=== PATIENT | female | born 1970 | race Caucasian/White ===

== ENCOUNTER → 2018-09-07 | Outpatient (CLI) | payer BC ==
--- NOTE | 2018-09-08 10:02 | RAD ---
DATE: 09/07/2018 EXAM: DIGITAL SCREEN BILAT W/CAD HISTORY: Screening Mammogram COMPARISON: None, this is considered a baseline. This study was interpreted with the benefit of Computerized Aided Detection (CAD). The breast parenchyma shows scattered fibroglandular densities. Breast parenchyma level B. FINDINGS: Bilateral digital 2-D and 3-D tomosynthesis CC and MLO views. There is a mass in the retroareolar left breast. No suspicious mass, calcification or architectural distortion in the right breast. IMPRESSION: Retroareolar left breast mass. Spot compression CC and MLO views with same-day ultrasound recommended. BI-RADS CATEGORY: 0 INCOMPLETE: NEEDS ADDITIONAL IMAGING EVALUATION AND/OR PRIOR MAMMOGRAMS FOR COMPARISON. RECOMMENDED FOLLOW-UP: ADD ADDITIONAL IMAGING PQRS compliance statement: Patient information was entered into a reminder system with a target due date for the next mammogram. Mammography is a sensitive method for finding small breast cancers, but it does not detect them all and is not a substitute for careful clinical examination. A negative mammogram does not negate a clinically suspicious finding and should not result in delay in biopsying a clinically suspicious abnormality. "Our facility is accredited by the [employer] Mammography Program."
== END | disposition home or self-care (01) ==
LOC: MAMMO 12:00
PROVIDERS: ATTEND Family Medicine
DX: Z12.31 Encounter for screening mammogram for malignant neoplasm of breast (principal); N63.41 Unspecified lump in right breast, subareolar
CPT/HCPCS: 77067

== ENCOUNTER → 2018-09-21 | Outpatient (CLI) | payer BC ==
--- NOTE | 2018-09-21 12:19 | RAD ---
DATE: 09/21/2018 EXAM: MAMMO DENA OPAL LT, BREAST LEFT HISTORY: Breast nodule COMPARISON: 09/07/2018 This study was interpreted with the benefit of Computerized Aided Detection (CAD). Breast Density: SCATTERED The breast parenchyma shows scattered fibroglandular densities. Breast parenchyma level B. FINDINGS: Additional views of the left breast were obtained including CC tomosynthesis images and a straight mediolateral view. They confirm the presence of a small 8 mm slightly lobulated nodule located just lateral to the midline in the inferior retroareolar region at approximately the 4:00 location. This is best visualized on CC tomosynthesis image #10. No suspicious microcalcifications are evident. CC tomosynthesis imaging also demonstrates a focus of mild skin thickening far laterally on the left. This appears to correspond to a known inflammatory skin lesion. Left breast ultrasound, 09/21/2018: A targeted ultrasound exam of the left lateral retroareolar region. There is a 5 x 2 x 7 mm nodule identified at the 4:00 location which corresponds in size and location to the mammographic abnormality. This nodule is hypoechoic without significant posterior acoustic enhancement or shadowing. It is wider than tall. There is movable debris within a portion of this process indicating that it is a complicated cystic structure. No other abnormality is seen in this region. IMPRESSION: 1. Small nodule at the 4:00 retroareolar region which demonstrates sonographic characteristics suggesting a complicated cyst or small abscess. A necrotic neoplasm cannot be entirely excluded. Sonographic follow-up in 3-4 months is suggested. 2. Small focus of skin thickening far posterolaterally which appears to correspond to an inflammatory skin lesion. Clinical surveillance is suggested. BI-RADS CATEGORY: 3 PROBABLY BENIGN FINDING(S)-SHORT INTERVAL FOLLOW-UP SUGGESTED RECOMMENDED FOLLOW-UP: 3M 3 MONTH FOLLOW-UP PQRS compliance statement: Patient information was entered into a reminder system with a target due date for the next mammogram. Mammography is a sensitive method for finding small breast cancers, but it does not detect them all and is not a substitute for careful clinical examination. A negative mammogram does not negate a clinically suspicious finding and should not result in delay in biopsying a clinically suspicious abnormality. "Our facility is accredited by the [employer] Mammography Program."
== END | disposition home or self-care (01) ==
LOC: MAMMO 10:52
DX: N63.42 Unspecified lump in left breast, subareolar (principal)
CPT/HCPCS: 76641; 77065; G0279; 77061

== ENCOUNTER 2019-02-25 06:48 | Emergency (ER) | payer BC ==
[~2019-02-25] VITALS: Ht 167.6 cm; Wt 108.9 kg
[2019-02-25 07:00] VITALS: BP 146/84
[2019-02-25] MEDS ORDERED: KETOROLAC 60 MG/2 ML VIAL. IM ONE (07:15)
--- NOTE | 2019-02-25 07:45 | RAD ---
Indication: Hip pain since 2:00 PM yesterday after getting out of chair. TECHNIQUE: AP pelvis and 2 views of the left hip joint COMPARISON: None FINDINGS/ impression: Bilateral hip joints are symmetric. No acute fracture or dislocation. Electronically signed by: Jim Perez DO (02/25/2019 7:42 AM) [facility]
[2019-02-25] MEDS ORDERED: NAPR-514 PO (07:54)
--- NOTE | 2019-02-25 07:55 | PHYS DOC ---
Past Medical History Past Medical History: Other Additional Past Medical Histor: PVC's Past Surgical History: Other Additional Past Surgical Histo: Right finger surgery Alcohol Use: None Drug Use: None Adult General Chief Complaint Chief Complaint: HIP PAIN HPI HPI 49-year-old female presents with left hip pain. She states she got up out of the chair yesterday approximately 2 PM and felt something give way in her left hip. She states the pain has intensified over the last 12-18 hours. She states she's having difficulty putting pressure on it now. She has not had this kind of pain in the past. She states if she sitting still the pain is not as intense and makes it much worse if she tries to get up and move around. She has not noticed any bruising to the area. She states the lateral part of her hip is very sore to touch. She denies any other injuries.] Review of Systems Review of Systems Constitutional: Denies fever or chills [] Eyes: Denies change in visual acuity, redness, or eye pain [] HENT: Denies nasal congestion or sore throat [] Respiratory: Denies cough or shortness of breath [] Cardiovascular: No additional information not addressed in HPI [] GI: Denies abdominal pain, nausea, vomiting, bloody stools or diarrhea [] : Denies dysuria or hematuria [] Musculoskeletal: Per history of present illness[] Integument: Denies rash or skin lesions [] Neurologic: Denies headache, focal weakness or sensory changes [] Endocrine: Denies polyuria or polydipsia [] All other systems were reviewed and found to be within normal limits, except as documented in this note. Current Medications Current Medications Current Medications Medications (Trade) Dose Ordered Sig/[facility] Start Time Stop Time Status Last Admin Dose Admin Ketorolac Tromethamine (Toradol Im) 60 mg 1X ONCE 02/25/19 07:15 02/25/19 07:16 DC 02/25/19 07:42 60 MG Allergies Allergies Allergies Coded Allergies Type Severity Reaction Last Updated Verified No Known Drug Allergies 02/25/19 No Physical Exam Physical Exam Constitutional: Well developed, well nourished, no acute distress, non-toxic appearance. [] HENT: Normocephalic, atraumatic, bilateral external ears normal, oropharynx moist, no oral exudates, nose normal. [] Eyes: PERRLA, EOMI, conjunctiva normal, no discharge. [] Neck: Normal range of motion, no tenderness, supple, no stridor. [] Cardiovascular:Heart rate regular rhythm, no murmur [] Lungs & Thorax: Bilateral breath sounds clear to auscultation [] Abdomen: Bowel sounds normal, soft, no tenderness, no masses, no pulsatile masses. [] Skin: Warm, dry, no erythema, no rash. [] Back: No tenderness, no CVA tenderness. [] Extremities: Left hip shows a decreased range of motion secondary to pain there is tender to palp over the greater trochanteric area. I do not appreciate any bruising in the area. There is no obvious deformity.. [] Neurologic: Alert and oriented X 3, normal motor function, normal sensory function, no focal deficits noted. [] Psychologic: Anxious. [] Current Patient Data Vital Signs Vital Signs Date Time Temp Pulse Resp B/P (MAP) Pulse Ox O2 Delivery O2 Flow Rate FiO2 02/25/19 07:00 97.7 84 18 146/84 (104) 97 Room Air 97.7 EKG EKG [] Radiology/Procedures Radiology/Procedures [] Impressions: REASON: hip pain SINCE 2PM YESTERDAY AFTER GETTING OUT OF CHAIR. HIP WENT OUT. PROCEDURE: HIP LEFT 2V WITH PELVIS Indication: Hip pain since 2:00 PM yesterday after getting out of chair. TECHNIQUE: AP pelvis and 2 views of the left hip joint COMPARISON: None FINDINGS/ impression: Bilateral hip joints are symmetric. No acute fracture or dislocation. Course & Med Decision Making Course & Med Decision Making Pertinent Labs and Imaging studies reviewed. (See chart for details) [ED course: Evaluation reveals a 49-year-old female with left hip pain. Hip and pelvis x-ray was unremarkable. I did give her 60 mg of Toradol while she was in the emergency department. I'll provide her with an anti-inflammatory prescription to take at home.] Dragon Disclaimer Dragon Disclaimer This electronic medical record was generated, in whole or in part, using a voice recognition dictation system. Departure Departure Impression: Primary Impression: Hip pain, left Disposition: HOME, SELF-CARE Condition: STABLE Referrals: SONIA LYMAN MD (PCP) Patient Instructions: Hip Pain Additional Instructions: Take medication as directed. Return to the emergency department with any new or concerning symptoms Scripts Naproxen (NAPROXEN) 500 Mg Tablet 1 TAB PO BID PRN for PAIN, #30 TAB 1 Refill Prov: YASMEEN HWANG DO 02/25/19 YASMEEN HWANG DO Feb 25, 2019 07:55
== END 2019-02-25 08:03 | disposition home or self-care (01) ==
LOC: ER 06:48
DX: M25.552 Pain in left hip (principal)
CPT/HCPCS: 73502; 96372; 99284; J1885

== ENCOUNTER 2021-01-08 12:35 | Emergency (ER) | payer BC ==
[~2021-01-08] VITALS: Ht 167.6 cm; Wt 113.0 kg
[~2021-01-08 12:35] MED LIST: NAPR-514 PO
[2021-01-08 13:40] VITALS: BP 151/109
[2021-01-08] MEDS ORDERED: TETRACAINE 0.5% OPHTH SOLUTION 4ML BOTTLE. OD ONE (14:15)
[2021-01-08] MEDS ORDERED: FLUORESCEIN OPHTH TEST STRIP. OD ONE (14:15)
[2021-01-08] MEDS ORDERED: LEVO5DRO3 OD (15:43)
--- NOTE | 2021-01-08 15:44 | PHYS DOC ---
Past Medical History Past Medical History: Hypertension, Other Additional Past Medical Histor: PVC's Past Surgical History: Other Additional Past Surgical Histo: Right finger surgery Smoking Status: Former Smoker Alcohol Use: Rarely Drug Use: None General Adult EDM: Chief Complaint: EYE PROBLEMS HPI: HPI: 50-year-old female PMH HTN, afib and PVCs (on metoprolol) presents to the ed with complaints of right red eye stating " it feels like I was developing a stye last night around 11 PM," I noticed redness at that time. Now reports "pain and pressure" to the right eye but no blurred vision or vision loss. Denies any blunt head or neck trauma. Follows with Dr. Harkins in the eye clinic and states she will make an appointment with him tomorrow for follow-up. Has contacts but does not wear them. Reports she does have poor vision but does not know accurate numbers. History of glaucoma. Uses daily Systane preservative-free eyedrops for dry eyes and a patch at night. Associated yellow crusts in right lower eyelashes. 2nd covid vaccine mid November 2020. Review of Systems: Review of Systems: Constitutional: Denies fever or chills. [] Eyes: Denies change in visual acuity or proptosis HENT: Denies nasal congestion or sore throat. [] Respiratory: Denies cough or shortness of breath. [] Cardiovascular: Denies chest pain or syncope Integument: Denies rash or diaphoresis Neurologic: Denies headache, neck pain, focal weakness or sensory changes. [] Lymphatic: Denies swollen glands. [] Psychiatric: Denies depression or anxiety. [] Heart Score: C/O Chest Pain: No Risk Factors: Risk Factors: DM, Current or recent (<one month) smoker, HTN, HLP, family history of CAD, obesity. Risk Scores: Score 0 - 3: 2.5% MACE over next 6 weeks - Discharge Home Score 4 - 6: 20.3% MACE over next 6 weeks - Admit for Clinical Observation Score 7 - 10: 72.7% MACE over next 6 weeks - Early Invasive Strategies Current Medications: Current Medications Medications (Trade) Dose Ordered Sig/[facility] Start Time Stop Time Status Last Admin Dose Admin Fluorescein Sodium (Ful-Connie) 1 strip 1X ONCE 01/08/21 14:15 01/08/21 14:16 DC 01/08/21 14:20 1 STRIP Tetracaine HCl (Tetracaine) 1 drop 1X ONCE 01/08/21 14:15 01/08/21 14:16 DC 01/08/21 14:21 1 DROP Allergies: Allergies: Allergies Coded Allergies Type Severity Reaction Last Updated Verified No Known Drug Allergies 02/25/19 No Physical Exam: PE: Constitutional: Well developed, well nourished, no acute distress, non-toxic appearance, afebrile HENT: Normocephalic, atraumatic, Eyes: PERRLA-4mm blOMI, conjunctiva injection over lateral aspect of eye, no medial canthus conjunctival injection, no ciliary flush, no hazy pupil, slight film over right lateral conjuncticva, no FB, no hyphema or hypopyn, tonopen 17 right eye, no fluorescein uptake with Archer lamp right eye, no Maynor sign right eye, globe intact right eye Neck: Normal range of motion, supple, no nuchal rigidity or meningismus Cardiovascular: S1/2 present, regular rhythm Lungs & Thorax: Speaking in full sentences, bilateral equal chest rise, no tachypnea or increased work of breathing Skin: Warm, dry, no erythema, no rash. [] Extremities: No tenderness, no cyanosis, Neurologic: Alert and oriented X 3, no focal deficits noted. [] Psychologic: Affect normal, judgement normal, mood normal. [] Current Patient Data: Vital Signs: Vital Signs Date Time Temp Pulse Resp B/P (MAP) Pulse Ox O2 Delivery O2 Flow Rate FiO2 01/08/21 13:40 98.2 73 18 151/109 (123) 95 Room Air 98.2 EKG: EKG: [] Radiology/Procedures: Radiology/Procedures: [] Course & Med Decision Making: Course & Med Decision Making Pertinent Labs and Imaging studies reviewed. (See chart for details) Concern for conjunctivitis, I suspect allergic versus bacterial, will cover with antibiotic drops. Patient is already using artificial tears daily. Patient informed not to use her contact lenses at this time. Patient agrees to follow- up with her fitness center attendant in the next 24 hours. Will discharge home with strict ED return precautions were given for blurred vision, fever, pain behind his eye, rash or neck stiffness. Encouraged urgent outpatient follow-up with PMD and fitness center attendant in 24 to 48 hours. Life-threatening processes were considered but are low suspicion at this time, given history, physical exam and ED workup. Pt was educated on all prescription medications and adverse effects. All patient's questions were answered and pt was stable at time of discharge. Life/limb-threatening differential includes but is not limited to, acute angle- closure glaucoma, uveitis, corneal abrasion, CRVO/CRAO, PRES, retinal deta chment, vitreous hemorrhage, temporal arteritis, optic neuritis, high-altitude retinopathy foreign body, globe rupture, episcleritis, corneal ulcer, traumatic iritis, hyphema or empyema, orbital cellulitis, orbital hematoma, lens dislocation, orbital wall fracture or toxidrome (digoxin, methanol, anticholinergic, hallucinogenic, etc). I spoken with the patient and her caregivers. I explained the patient's condition, diagnoses and treatment plan based on the information available to me at this time. I have answered the patient and her caregiver's questions and addressed any concerns. The patient and her caregivers have a good u nderstanding of patient's diagnosis, condition and treatment plan as can be expected at this point. Vital signs have been stable. Patient's condition is stable and appropriate for discharge from the emergency department. Patient will pursue further outpatient evaluation with primary care physician or other designated or consulting physician as outlined in the discharge instruct ions. The patient and/or caregivers are agreeable to this plan of care and follow-up instructions have been explained in detail. The patient and/or caregivers have received these instructions in written form and have expressed an understanding of the discharge instructions. The patient and/or caregivers are aware that any significant change of condition or worsening of symptoms should prompt immediate return to this or the closest emergency department or call to 911. Etta Disclaimer: Etta Disclaimer: This electronic medical record was generated, in whole or in part, using a voice recognition dictation system. Departure Departure Impression: Primary Impression: Bacterial conjunctivitis of right eye Additional Impression: Conjunctival injection Disposition: HOME / SELF CARE / HOMELESS Condition: STABLE Referrals: SONIA LYMAN MD (PCP) follow up for routine/preventative care Patient Instructions: Allergic Conjunctivitis, Conjunctivitis (Viral and Bacterial) Additional Instructions: Follow-up with your fitness center attendant in 24 to 48 hours or FOLLOW UP WITH ORTHOPEDICS: Orthopaedic Sports Medicine Orthopaedic Surgery [facility] [address] [place], [address] [place] [address] OR [facility] [address] [place] [address] EMERGENCY DEPARTMENT GENERAL DISCHARGE INSTRUCTIONS Thank you for coming to [facility] Emergency Department (ED) today and trusting us with you care. We trust that you had a positive experience in our Emergency Department. If you wish to speak to the department management, you may call the Director at [phone]. YOUR FOLLOW UP INSTRUCTIONS ARE FOLLOWS: 1. Do you have a private Doctor? If you do not have a private doctor, please ask for a resource list of physicians or clinics that may be able to assist you with follow up care. 2. The Emergency Physicain has interpreted your x-rays. The X-Ray specialist will also review them. If there is a change in the findings, you will be notified in 48 hours when at all possible. 3. A lab test or culture has been done, your results will be reviewed and you will be notified if you need a change in treatment. ADDITIONAL INSTRUCTIONS AND INFORMATION: 1. Your care today has been supervised by a physician who is specially trained in emergency care. Many problems require more than one evaluation for a complete diagnosis and treatment. We recommend that you schedule your follow up appointment as recommended to ensure complete treatment of you illness or injury. If you are unable to obtain follow up care and continue to have a problem, or if your condition worsens, we recommend that you return to the ED. 2. We are not able to safely determine your condition over the phone nor are we able to give sound medical advice over the phone. For these safety reasons, if you call for medical advice we will ask you to come to the ED for further evaluation. 3. If you have any questions regarding these discharge instructions please call the ED at [phone]. SAFETY INFORMATION: In the interest of safety, wellness, and injury prevention; we encourage you to wear your sealbelt, if you smoke; quite smoking, and we encourage family to use a protective helmet for bicycling and other sporting events that present an increased risk for head injury. IF YOUR SYMPTOMS WORSEN OR NEW SYMPTOMS DEVELOP, OR YOU HAVE CONCERNS ABOUT YOUR CONDITION; OR IF YOUR CONDITION WORSENS WHILE YOU ARE WAITING FOR YOUR FOLLOW UP APPOINTMENT; EITHER CONTACT YOUR PRIMARY CARE DOCTOR, THE PHYSICIAN WHOSE NAME AND NUMBER YOU WERE GIVEN, OR RETURN TO THE ED IMMEDIATELY. Scripts Levofloxacin (LEVOFLOXACIN 0.5% OPTH) 5 Ml Drops 1-2 DROP OD as directed, #5 ML 0 Refills 1-2 drops every 2 hours x 2 days THEN every 6 hours for 5 days Prov: JULIEN MCKEON DO 01/08/21 JULIEN MCKEON DO January 08, 2021 15:44
== END 2021-01-08 16:00 | disposition home or self-care (01) ==
LOC: ER 12:35
DX: H10.89 Other conjunctivitis (principal); I10 Essential (primary) hypertension; I48.91 Unspecified atrial fibrillation
CPT/HCPCS: 99283

== ENCOUNTER 2021-04-17 09:56 | Observation (INO) | payer BC, OTHER ==
[~2021-04-17] VITALS: Ht 167.6 cm; Wt 120.4 kg
[2021-04-17] VITALS (13 sets, daily range): BP systolic 133–162; BP diastolic 77–114
[~2021-04-17 09:56] MED LIST changes: +LEVO5DRO3 OD
[2021-04-17] MEDS ORDERED: ASPIRIN CHEWABLE 81 MG TABLET. PO ONE (10:30)
[2021-04-17] MEDS ORDERED: METOPROLOL TART IMMED RELEASE 50 MG TABLET. PO ONE (10:30)
[2021-04-17] MEDS ORDERED: METOPROLOL IV PUSH 5 MG/5 ML VIAL. IVP ONE (10:45)
--- NOTE | 2021-04-17 10:50 | PDOC2 ---
SANAM QUACH BEEF KILLER 04/17/21 1050: CARDIAC CONSULT DATE OF CONSULT Date of Consult DATE: 04/17/21 TIME: 10:48 SOURCE Source: Chart review, Patient HISTORY OF PRESENT ILLNESS HISTORY OF PRESENT ILLNESS This is a 51 yo female who presented secondary to palpitations, tachycardia. Her watch notified heart rhythm of AFIB, which prompted her arrival to the ED. Patient has a history of palpitations and AFIB. Event monitor 06/30 with brief periods of AFIB with burden of less than 1%, although monitor only worse 11 days. She denies any chest pain, dizziness, diaphoresis, or nausea/vomiting. Reports having recent cold/congestion/sore throat. Her work required her to get COVID test prior to returning back to work. Was headed to get COVID test this morning. She did not have her routine metoprolol today as she was told to hold home medications. Tele shows SR with intermittent AFIB with RVR. PAST MEDICAL HISTORY Cardiovascular: AFIB, Hyperlipidemia GI: GERD Psych: Anxiety PAST SURGICAL HISTORY Past Surgical History: Tubal Ligation FAMILY HISTORY Family History: Hypertension SOCIAL HISTORY Smoke: Quit ALCOHOL: none Drugs: None Lives: with Family ALLERGIES ALLERGIES: Coded Allergies: No Known Drug Allergies (Unverified , 02/25/19) ROS Review of System 14 point ROS conducted with pertinent positives noted above in hPI PHYSICAL EXAM General: Alert, Oriented X3, Cooperative, No acute distress HEENT: Atraumatic Lungs: Clear to auscultation Heart: Regular rate (SR, also having intermittent AFIB with RVR ) Abdomen: Soft Extremities: No edema, Normal pulses Skin: No breakdown, No significant lesion Neuro: Normal speech, Sensation intact Psych/Mental Status: Mental status NL, Mood NL MUSCULOSKELETAL: No deformity STRESS TEST STRESS TEST Conclusion 1. No evidence of EKG changes with stress testing. 2. Normal perfusion at stress/rest. 3. Low risk study. 4. EF > 60%. DATE: 09/18/18 1117 ASSESSMENT/PLAN ASSESSMENT/PLAN 1. PAFIB with RVR; s/p IV metoprolol. Continues to have intermittent AFIB with RVR. Event monitor with brief bursts of AFIB, otherwise SR. AFIB burden < 1%, although monitor only worn for 11 days. 2. Hyperlipidemia 3. GERD Recommendations Digoxin x1 now Resume oral metoprolol for rate control TSH Echo to assess LV systolic function [id number] 1 correlating with a 0.6% risk of stoke per year ASA therapy for stroke prophylaxis. Consider addition of OAC and antiarrhythmic therapy. Will d/w primary c ardiologist. MARK GUERRERO MD 04/17/216: CARDIAC CONSULT ASSESSMENT/PLAN ASSESSMENT/PLAN Patient seen and examined I agree with our nurse practitioners assessment and plan. 1. PAFIB with RVR; s/p IV metoprolol and digoxin. Continues to have intermittent AFIB with RVR. Event monitor with brief bursts of AFIB, othe rwise SR. AFIB burden < 1%, although monitor only worn for 11 days. We will continue present medications. Continuing on monitor. Based on clinical course will consider anticoagulation and possible antiarrhythmic treatment. Echocardiogram pending. TSH. 2. Hyperlipidemia 3. SANAM SIDDIQUI APRN Apr 17, 2021 10:50 MARK GUERRERO MD Apr 17, 2021 18:46
[2021-04-17] MEDS ORDERED: DIGOXIN IV 500 MCG/2 ML AMPUL. IV ONE (11:00)
[2021-04-17 11:08] LABS: BASO % 1 % (0-3); EOS # 0.1 x10^3/uL (0.0-0.7); EOS % 1 % (0-3); HEMATOCRIT 45.9 % (36.0-47.0); HEMOGLOBIN 15.9 g/dL (12.0-15.5); LYMPH % 26 % (24-48); MEAN CORPUSCULAR HEMOGLOBIN 32 pg (25-35); MEAN CORPUSCULAR HGB CONC 35 g/dL (31-37); MEAN CORPUSCULAR VOLUME 94 fL (79-100); MONO # 0.6 x10^3/uL (0.0-1.1); MONO % 7 % (0-9); NEUT # 5.2 x10^3/uL (1.8-7.7); NEUT % 65 % (31-73); PLATELET COUNT 186 x10^3/uL (140-400); RED CELL DISTRIBUTION WIDTH 13.4 % (11.5-14.5); WHITE BLOOD COUNT 7.9 x10^3/uL (4.0-11.0)
--- NOTE | 2021-04-17 11:10 | RAD ---
INDICATION: Reason: Chest palpitations / Spl. Instructions: / History: COMPARISON: None. FINDINGS: Single view of chest obtained. Cardiac silhouette upper limits of normal in size. Mild interstitial opacities to the lungs. IMPRESSION: * Mild interstitial opacities to the lungs which could be secondary to mild edema or interstitial in filtrate. A chronic component is not excluded given lack of prior exam. Electronically signed by: Kevin Reynolds MD (04/17/2021 11:07 AM) [id number]
[2021-04-17 11:21] LABS: CALCIUM 9.1 mg/dL (8.5-10.1); CREATININE 1.1 mg/dL (0.6-1.0); POTASSIUM 4.7 mmol/L (3.5-5.1)
[2021-04-17 11:26] LABS: ALBUMIN 3.4 g/dL (3.4-5.0); PHOSPHORUS 2.7 mg/dL (2.6-4.7); TOTAL BILIRUBIN 0.5 mg/dL (0.2-1.0); TOTAL PROTEIN 6.8 g/dL (6.4-8.2)
--- NOTE | 2021-04-17 11:55 | EKG ---
[facility] [address] [place] [address] Test Date: 2021-04-17 Test Time: 10:23:39 Pat Name: JOSE DONAHUE Department: Room: Gender: F Surveillance Sensor Officer: : 1970 Requested By: JESSA RAGSDALE Order Number: [id number] Reading MD: Chino Mcarthur MD Measurements Intervals [place] Rate: 91 P: -23 VT: 108 QRS: -29 QRSD: 82 T: 74 QT: 352 QTc: 435 Interpretive Statements SINUS RHYTHM ECTOPIC ATRIAL RHYTHM SHORT VT INTERVAL SVT Electronically Signed On 04-19-2021 9:16:33 CDT by Chino Mcarthur MD
--- NOTE | 2021-04-17 12:18 | PHYS DOC ---
Past Medical History Past Medical History: Hypertension, Other Additional Past Medical Histor: PVC's Past Surgical History: Tubal ligation, Other Additional Past Surgical Histo: Right finger surgery Smoking Status: Never Smoker Alcohol Use: None Drug Use: None General Adult EDM: Chief Complaint: SHORTNESS OF BREATH HPI: HPI: Patient is a 51 year old female presents to the emergency department complaining of sudden onset of chest palpitations approximately 9 AM. Patient reports she was going to a COVID-19 virus testing center related to nasal osei estion that started yesterday. Patient reports she took [id number] NyQuil last night. Patient states she did not take any prescription medications that she was told not to prior to having her COVID-19 virus testing. Patient states she usually takes 50 mg of metoprolol each morning for PVC control. Patient also reports home medications of Lexapro and Xanax. Patient reports he does not believe she has the COVID-19 virus however her work requires her to be tested when she has symptoms. Patient reports having the COVID-19 virus vaccination series. Patient denies current chest pain, shortness of breath, nasal or chest congestion. Patient reports intermittent chest palpitations, had an episode of diaphoresis at onset that has since resolved. Patient denies nausea, vomiting, diarrhea. Denies recent surgeries or recent hospitalizations. Patient denies other physical complaints or physical concerns. Review of Systems: Review of Systems: 14 body systems of review of systems have been reviewed. See HPI for pertinent positives and negative responses, otherwise all other systems are negative, nonpertinent or noncontributory. Constitutional: Negative except as outlined in HPI above. Skin: Negative except as outlined in HPI above. Eyes: Negative except as outlined in HPI above. HENT: Negative except as outlined in HPI above. Respiratory: Negative except as outlined in HPI above. Cardiovascular: Negative except as outlined in HPI above. GI: Negative except as outlined in HPI above. : Negative except as outlined in HPI above. Musculoskeletal: Negative except as outlined in HPI above. Integument: Negative except as outlined in HPI above. Neurologic: Negative except as outlined in HPI above. Endocrine: Negative except as outlined in HPI above. Lymphatic: Negative except as outlined in HPI above. Psychiatric: Negative except as outlined in HPI above. Heart Score: C/O Chest Pain: No Risk Factors: Risk Factors: DM, Current or recent (<one month) smoker, HTN, HLP, family history of CAD, obesity. Risk Scores: Score 0 - 3: 2.5% MACE over next 6 weeks - Discharge Home Score 4 - 6: 20.3% MACE over next 6 weeks - Admit for Clinical Observation Score 7 - 10: 72.7% MACE over next 6 weeks - Early Invasive Strategies Current Medications: Current Medications Medications (Trade) Dose Ordered Sig/William Start Time Stop Time Status Last Admin Dose Admin Aspirin (Aspirin Chewable) 324 mg 1X ONCE 04/17/21 10:30 04/17/21 10:32 DC 04/17/21 10:59 324 MG Digoxin (Lanoxin) 500 mcg 1X ONCE 04/17/21 11:00 04/17/21 11:01 DC 04/17/21 11:09 500 MCG Metoprolol Tartrate (Lopressor Vial) 5 mg 1X ONCE 04/17/21 10:45 04/17/21 10:46 DC 04/17/21 10:58 5 MG Metoprolol Tartrate (Lopressor) 50 mg 1X ONCE 04/17/21 10:30 04/17/21 10:32 DC 04/17/21 11:07 50 MG Allergies: Allergies: Allergies Coded Allergies Type Severity Reaction Last Updated Verified No Known Drug Allergies 02/25/19 No Physical Exam: PE: C constitutional: Well developed, well nourished, no acute distress, non-toxic appearance. 51-year-old female in no apparent distress. HENT: Normocephalic, atraumatic. Eyes: Conjunctiva normal, no discharge. Neck: Normal range of motion, no stridor. Cardiovascular: No cyanosis appreciated, distal cap refill less than 2 seconds. Heart rate tachycardic and irregular per auscultation. PMI to the left. Lungs & Thorax: Patient is in no respiratory distress, no audible adventitious lung sounds appreciated. Lung sounds clear to auscultate all lung cook, no pain to palpation of the anterior thorax. Abdomen: Nontender, no abnormalities noted. Skin: Warm, dry, no erythema, no rash. Back: No tenderness, no deformities. Extremities: No tenderness, no cyanosis, no clubbing, ROM intact, no edema. Neurologic: Alert and oriented X 3, normal motor function, normal sensory function, no focal deficits noted. Psychologic: Affect normal, judgement normal, mood normal. Current Patient Data: Labs: Laboratory Tests Test 04/17/21 10:50 04/17/21 11:35 White Blood Count 7.9 x10^3/uL Red Blood Count 4.90 x10^6/uL Hemoglobin 15.9 g/dL Hematocrit 45.9 % Mean Corpuscular Volume 94 fL Mean Corpuscular Hemoglobin 32 pg Mean Corpuscular Hemoglobin Concent 35 g/dL Red Cell Distribution Width 13.4 % Platelet Count 186 x10^3/uL Neutrophils (%) (Auto) 65 % Lymphocytes (%) (Auto) 26 % Monocytes (%) (Auto) 7 % Eosinophils (%) (Auto) 1 % Basophils (%) (Auto) 1 % Neutrophils # (Auto) 5.2 x10^3/uL Lymphocytes # (Auto) 2.0 x10^3/uL Monocytes # (Auto) 0.6 x10^3/uL Eosinophils # (Auto) 0.1 x10^3/uL Basophils # (Auto) 0.0 x10^3/uL Sodium Level 144 mmol/L Potassium Level 4.7 mmol/L Chloride Level 106 mmol/L Carbon Dioxide Level 30 mmol/L Anion Gap 8 Blood Urea Nitrogen 12 mg/dL Creatinine 1.1 mg/dL Estimated GFR (Cockcroft-Gault) 52.0 BUN/Creatinine Ratio 11 Glucose Level 101 mg/dL Calcium Level 9.1 mg/dL Phosphorus Level 2.7 mg/dL Total Bilirubin 0.5 mg/dL Aspartate Amino Transf (AST/SGOT) 28 U/L Alanine Aminotransferase (ALT/SGPT) 77 U/L Alkaline Phosphatase 115 U/L Creatine Kinase 79 U/L Creatine Kinase MB (Mass) 1.0 ng/mL Creatine Kinase MB Relative Index 1.3 % Troponin I Quantitative < 0.017 ng/mL ID-Clq-S-Type Natriuretic Peptide 1122 pg/mL Total Protein 6.8 g/dL Albumin 3.4 g/dL Albumin/Globulin Ratio 1.0 SARS-CoV-2 Antigen (Rapid) Negative Current Medications Medications (Trade) Dose Ordered Sig/William Route PRN Reason Start Time Stop Time Status Last Admin Dose Admin Aspirin (Aspirin Chewable) 324 mg 1X ONCE PO 04/17/21 10:30 04/17/21 10:32 DC 04/17/21 10:59 Metoprolol Tartrate (Lopressor) 50 mg 1X ONCE PO 04/17/21 10:30 04/17/21 10:32 DC 04/17/21 11:07 Metoprolol Tartrate (Lopressor Vial) 5 mg 1X ONCE IVP 04/17/21 10:45 04/17/21 10:46 DC 04/17/21 10:58 Digoxin (Lanoxin) 500 mcg 1X ONCE IV 04/17/21 11:00 04/17/21 11:01 DC 04/17/21 11:09 Laboratory Tests Test 04/17/21 10:50 White Blood Count 7.9 x10^3/uL (4.0-11.0) Red Blood Count 4.90 x10^6/uL (3.50-5.40) Hemoglobin 15.9 g/dL (12.0-15.5) H Hematocrit 45.9 % (36.0-47.0) Mean Corpuscular Volume 94 fL (79-100) Mean Corpuscular Hemoglobin 32 pg (25-35) Mean Corpuscular Hemoglobin Concent 35 g/dL (31-37) Red Cell Distribution Width 13.4 % (11.5-14.5) Platelet Count 186 x10^3/uL (140-400) Neutrophils (%) (Auto) 65 % (31-73) Lymphocytes (%) (Auto) 26 % (24-48) Monocytes (%) (Auto) 7 % (0-9) Eosinophils (%) (Auto) 1 % (0-3) Basophils (%) (Auto) 1 % (0-3) Neutrophils # (Auto) 5.2 x10^3/uL (1.8-7.7) Lymphocytes # (Auto) 2.0 x10^3/uL (1.0-4.8) Monocytes # (Auto) 0.6 x10^3/uL (0.0-1.1) Eosinophils # (Auto) 0.1 x10^3/uL (0.0-0.7) Basophils # (Auto) 0.0 x10^3/uL (0.0-0.2) Sodium Level 144 mmol/L (136-145) Potassium Level 4.7 mmol/L (3.5-5.1) Chloride Level 106 mmol/L (98-107) Carbon Dioxide Level 30 mmol/L (21-32) Anion Gap 8 (6-14) Blood Urea Nitrogen 12 mg/dL (7-20) Creatinine 1.1 mg/dL (0.6-1.0) H Estimated GFR (Cockcroft-Gault) 52.0 BUN/Creatinine Ratio 11 (6-20) Glucose Level 101 mg/dL (70-99) H Calcium Level 9.1 mg/dL (8.5-10.1) Phosphorus Level 2.7 mg/dL (2.6-4.7) Total Bilirubin 0.5 mg/dL (0.2-1.0) Aspartate Amino Transferase (AST) 28 U/L (15-37) Alanine Aminotransferase (ALT) 77 U/L (14-59) H Alkaline Phosphatase 115 U/L (46-116) Creatine Kinase 79 U/L (26-192) Creatine Kinase MB (Mass) 1.0 ng/mL (0.0-3.6) Creatine Kinase MB Relative Index 1.3 % (0-4) Troponin I Quantitative < 0.017 ng/mL (0.000-0.055) UD-Azc-H-Type Natriuretic Peptide 1122 pg/mL (0-124) H Total Protein 6.8 g/dL (6.4-8.2) Albumin 3.4 g/dL (3.4-5.0) Albumin/Globulin Ratio 1.0 (1.0-1.7) Laboratory Tests 04/17/21 10:50 Laboratory Tests 04/17/21 10:50 Vital Signs: Vital Signs Date Time Temp Pulse Resp B/P (MAP) Pulse Ox O2 Delivery O2 Flow Rate FiO2 04/17/21 11:09 135 161/93 04/17/21 10:30 98.0 22 97 Room Air 98.0 EKG: EKG: EKG performed at 1023 by ED nursing staff shows a sinus rhythm with occasional PACs, heart rate 91 bpm, KS interval 108, QTc interval 0.435, no acute STEMI, no ACS, no acute ischemia appreciated, EKG interpreted by ED attending physician Dr. Reilly. Radiology/Procedures: Radiology/Procedures: PATIENT: JOSE DONAHUE ACCOUNT: [id number] : 1970 LOCATION: ER AGE: 51 SEX: F EXAM STATUS: REG ER ORD. PHYSICIAN: JESSA RAGSDALE APRN REASON: Chest palpitations PROCEDURE: CHEST AP ONLY INDICATION: Reason: Chest palpitations / Spl. Instructions: / History: COMPARISON: None. FINDINGS: Single view of chest obtained. Cardiac silhouette upper limits of normal in size. Mild interstitial opacities to the lungs. IMPRESSION: * Mild interstitial opacities to the lungs which could be secondary to mild edema or interstitial infiltrate. A chronic component is not excluded given lack of prior exam. Electronically signed by: Kevin Reynolds MD (04/17/2021 11:07 AM) [id number] Course & Med Decision Making: Course & Med Decision Making Pertinent Labs and Imaging studies reviewed. (See chart for details) 50-year-old female, vital signs reviewed, presents emergency department concerning chest palpitations. Physical examination concerning for cardiac arrhythmia, patient having short runs of tachycardia rate of 150s, appears to be PAC in nature however concerning for atrial fibrillation. Patient does convert to normal sinus rhythm often. Patient does feel palpitations during tachycardic runs. Patient denies chest pain. Will order cardio respiratory work-up, consult cardiology. Give 5 mg metoprolol IV, 50 mg metoprolol p.o.. 324 of aspirin p.o. Discussed recommendation for admission to hospital related to heart arrhythmias and chest palpitations. Patient is amenable to this planning. At 1050, discussed patient case and ED work-up with cardiology nurse practitioner gabbie luo who recommended 500 mcg of IV digoxin, will come down and evaluate patient for consult on admission. Labs pending at this time. Called and discussed patient case and ED work-up with hospitalist Dr. Edwards who agrees patient case and presentation warrants admission to the hospital. Will admit to CVC unit diagnosis heart palpitations, cardiac dysrhythmia. 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 Patient is aware of bed status in hospital and aware of need to wait in the emergency department for inpatient bed. Dragon Disclaimer: Dragelizabeth Disclaimer: This electronic medical record was generated, in whole or in part, using a voice recognition dictation system. Departure Departure Impression: Primary Impression: Cardiac arrhythmia Qualified Codes: I49.9 - Cardiac arrhythmia, unspecified Additional Impression: Heart palpitations Disposition: ADMITTED INPATIENT Admitting Physician: CARISSA (Admit to telemetry/CVC unit to Dr. Edwards with cardiology consult.) Condition: GUARDED Referrals: SNOIA LYMAN MD (PCP) JESSA RAGSDALE APRN Apr 17, 2021 12:18
[2021-04-17 13:39] LABS: BILIRUBIN,URINE NEGATIVE (NEG); CLARITY,URINE CLEAR; COLOR,URINE YELLOW; NITRITE,URINE NEGATIVE (NEG); PH,URINE 7.5 (<5.0-8.0); PROTEIN,URINE NEGATIVE (NEG-TRACE)
[2021-04-17 13:48] LABS: BACTERIA,URINE MANY /HPF (0-FEW)
[2021-04-17 13:49] LABS: RBC,URINE 0 /HPF (0-2); WBC,URINE RARE /HPF (0-4)
--- NOTE | 2021-04-17 15:44 | PDOC1 ---
History and Physical Date of Service: DOS: DATE: 04/17/21 TIME: 15:38 Chief Complaint: Chief Complain: Palpitations History of Present Illness: HPI: Patient is a 51-year-old female who is morbidly obese and has had a history of atrial fibrillation in the past who comes in the ED for feelings of palpitations and elevated heart rate. She was actually getting go to [facility] to get her Covid test in which she was waiting she felt lightheaded and about 5 to 10 minutes later her symptoms some watch alerted her that she was in atrial fibrillation. Patient has tried to wear a heart monitor in the past but had reactions to the gel which she was placed on. Therefore she was never formally diagnosed with atrial fibrillation and was not able to follow-up with. Patient did not take her normally dose metoprolol. On arrival she did have intermittent atrial fibrillation and she was in normal sinus rhythm with PVCs. During my time of interview her's ekg monitor tech did show that she was in normal sinus rhythm. Denies fevers, chest pain, abdominal pain, diarrhea, shortness of breath or syncope. Past Medical/Surgical History: PMH/PSH: Past Medical History: Hypertension, atrial fibrillation, GERD, dyslipidemia, morbid obesity Past Surgical History: Tubal ligation, Right finger surgery Allergies: Allergies: Coded Allergies: No Known Drug Allergies (Unverified , 02/25/19) Family History: Family History: Reviewed with no relevant findings Social History: Social History: Smoking Status: Never Smoker Alcohol Use: None Drug Use: None Current Medications: Current Medications Current Medications Aspirin (Aspirin Chewable) 324 mg 1X ONCE PO Last administered on 04/17/21at 10:59; Start 04/17/21 at 10:30; Stop 04/17/21 at 10:32; Status DC Metoprolol Tartrate (Lopressor) 50 mg 1X ONCE PO Last administered on 04/17/21at 11:07; Start 04/17/21 at 10:30; Stop 04/17/21 at 10:32; Status DC Metoprolol Tartrate (Lopressor Vial) 5 mg 1X ONCE IVP Last administered on 04/17/21at 10:58; Start 04/17/21 at 10:45; Stop 04/17/21 at 10:46; Status DC Digoxin (Lanoxin) 500 mcg 1X ONCE IV Last administered on 9/7/21at 11:09; Start 04/17/21 at 11:00; Stop 04/17/21 at 11:01; Status DC Active Scripts Active Levofloxacin 0.5% Opth (Levofloxacin) 5 Ml Drops 1-2 Drop OD DIRECTED 1-2 drops every 2 hours x 2 days THEN every 6 hours for 5 days Naproxen 500 Mg Tablet 1 Tab PO BID PRN ROS: Review of Systems Review of System REVIEW OF SYSTEMS: GENERAL: Denies weakness SKIN: No bruising, hair changes or rashes. EYES: No blurred, double or loss of vision. NOSE AND THROAT: No history of nosebleeds, hoarseness or sore throat. HEART: Positive for palpitations LUNGS: Denies cough, hemoptysis, wheezing or shortness of breath. GASTROINTESTINAL: Denies changes in appetite, nausea, vomiting, diarrhea or constipation. GENITOURINARY: No history of frequency, urgency, hesitancy or nocturia. NEUROLOGIC: Denies history of numbness, tingling, or tremor. PSYCHIATRIC: No history of panic, anxiety or depression. ENDOCRINE: No history of heat or cold intolerance, polyuria or polydipsia. EXTREMITIES: Denies joint pain, pain on walking or stiffness. Physical Exam: Vital Signs: Vital Signs Date Time Temp Pulse Resp B/P (MAP) Pulse Ox O2 Delivery O2 Flow Rate FiO2 04/17/21 15:23 74 120/75 (90) 95 Room Air 04/17/21 10:30 98.0 22 98.0 Physcial Exam: General: Well developed, well nourished, no acute distress, well appearing HEENT: Pupils equally round and reactive to light, EOMI, no discharge, normal conjunctiva Neck: Supple, no nuchal rigidity, no JVD, trachea midline, no tenderness Cardiac: Occasional irregularity, no murmurs, no gallops, no rubs Chest/Lungs: CTAB, no wheeze, no rhonchi, no crackles Abdomen: Obese, soft, non-distended, no guarding, no peritoneal signs, non- tender Back: No tenderness Extremities: no edema, pulses intact, non-tender,capillary refill <3 sec serina ateral upper and lower extremities, Neuro: Alert and oriented x 4, no focal deficits, normal speech Labs: Labs: Laboratory Tests Test 04/17/21 10:50 04/17/21 11:35 04/17/21 13:10 White Blood Count 7.9 x10^3/uL (4.0-11.0) Red Blood Count 4.90 x10^6/uL (3.50-5.40) Hemoglobin 15.9 g/dL (12.0-15.5) Hematocrit 45.9 % (36.0-47.0) Mean Corpuscular Volume 94 fL (79-100) Mean Corpuscular Hemoglobin 32 pg (25-35) Mean Corpuscular Hemoglobin Concent 35 g/dL (31-37) Red Cell Distribution Width 13.4 % (11.5-14.5) Platelet Count 186 x10^3/uL (140-400) Neutrophils (%) (Auto) 65 % (31-73) Lymphocytes (%) (Auto) 26 % (24-48) Monocytes (%) (Auto) 7 % (0-9) Eosinophils (%) (Auto) 1 % (0-3) Basophils (%) (Auto) 1 % (0-3) Neutrophils # (Auto) 5.2 x10^3/uL (1.8-7.7) Lymphocytes # (Auto) 2.0 x10^3/uL (1.0-4.8) Monocytes # (Auto) 0.6 x10^3/uL (0.0-1.1) Eosinophils # (Auto) 0.1 x10^3/uL (0.0-0.7) Basophils # (Auto) 0.0 x10^3/uL (0.0-0.2) Sodium Level 144 mmol/L (136-145) Potassium Level 4.7 mmol/L (3.5-5.1) Chloride Level 106 mmol/L (98-107) Carbon Dioxide Level 30 mmol/L (21-32) Anion Gap 8 (6-14) Blood Urea Nitrogen 12 mg/dL (7-20) Creatinine 1.1 mg/dL (0.6-1.0) Estimated GFR (Cockcroft-Gault) 52.0 BUN/Creatinine Ratio 11 (6-20) Glucose Level 101 mg/dL (70-99) Calcium Level 9.1 mg/dL (8.5-10.1) Phosphorus Level 2.7 mg/dL (2.6-4.7) Total Bilirubin 0.5 mg/dL (0.2-1.0) Aspartate Amino Transf (AST/SGOT) 28 U/L (15-37) Alanine Aminotransferase (ALT/SGPT) 77 U/L (14-59) Alkaline Phosphatase 115 U/L (46-116) Creatine Kinase 79 U/L (26-192) Creatine Kinase MB (Mass) 1.0 ng/mL (0.0-3.6) Creatine Kinase MB Relative Index 1.3 % (0-4) Troponin I Quantitative < 0.017 ng/mL (0.000-0.055) OA-Lym-P-Type Natriuretic Peptide 1122 pg/mL (0-124) Total Protein 6.8 g/dL (6.4-8.2) Albumin 3.4 g/dL (3.4-5.0) Albumin/Globulin Ratio 1.0 (1.0-1.7) SARS-CoV-2 Antigen (Rapid) Negative (NEGATIVE) Urine Collection Type Unknown Urine Color Yellow Urine Clarity Clear Urine pH 7.5 (<5.0-8.0) Urine Specific [place] 1.015 (1.000-1.030) Urine Protein Negative mg/dL (NEG-TRACE) Urine Glucose (UA) Negative mg/dL (NEG) Urine Ketones (Stick) Negative mg/dL (NEG) Urine Blood Negative (NEG) Urine Nitrite Negative (NEG) Urine Bilirubin Negative (NEG) Urine Urobilinogen Dipstick 1.0 mg/dL (0.2 mg/dL) Urine Leukocyte Esterase Negative (NEG) Urine RBC 0 /HPF (0-2) Urine WBC Rare /HPF (0-4) Urine Squamous Epithelial Cells Many /LPF Urine Bacteria Many /HPF (0-FEW) Laboratory Tests Test 04/17/21 10:50 04/17/21 11:35 04/17/21 13:10 White Blood Count 7.9 x10^3/uL (4.0-11.0) Red Blood Count 4.90 x10^6/uL (3.50-5.40) Hemoglobin 15.9 g/dL (12.0-15.5) Hematocrit 45.9 % (36.0-47.0) Mean Corpuscular Volume 94 fL (79-100) Mean Corpuscular Hemoglobin 32 pg (25-35) Mean Corpuscular Hemoglobin Concent 35 g/dL (31-37) Red Cell Distribution Width 13.4 % (11.5-14.5) Platelet Count 186 x10^3/uL (140-400) Neutrophils (%) (Auto) 65 % (31-73) Lymphocytes (%) (Auto) 26 % (24-48) Monocytes (%) (Auto) 7 % (0-9) Eosinophils (%) (Auto) 1 % (0-3) Basophils (%) (Auto) 1 % (0-3) Neutrophils # (Auto) 5.2 x10^3/uL (1.8-7.7) Lymphocytes # (Auto) 2.0 x10^3/uL (1.0-4.8) Monocytes # (Auto) 0.6 x10^3/uL (0.0-1.1) Eosinophils # (Auto) 0.1 x10^3/uL (0.0-0.7) Basophils # (Auto) 0.0 x10^3/uL (0.0-0.2) Sodium Level 144 mmol/L (136-145) Potassium Level 4.7 mmol/L (3.5-5.1) Chloride Level 106 mmol/L (98-107) Carbon Dioxide Level 30 mmol/L (21-32) Anion Gap 8 (6-14) Blood Urea Nitrogen 12 mg/dL (7-20) Creatinine 1.1 mg/dL (0.6-1.0) Estimated GFR (Cockcroft-Gault) 52.0 BUN/Creatinine Ratio 11 (6-20) Glucose Level 101 mg/dL (70-99) Calcium Level 9.1 mg/dL (8.5-10.1) Phosphorus Level 2.7 mg/dL (2.6-4.7) Total Bilirubin 0.5 mg/dL (0.2-1.0) Aspartate Amino Transf (AST/SGOT) 28 U/L (15-37) Alanine Aminotransferase (ALT/SGPT) 77 U/L (14-59) Alkaline Phosphatase 115 U/L (46-116) Creatine Kinase 79 U/L (26-192) Creatine Kinase MB (Mass) 1.0 ng/mL (0.0-3.6) Creatine Kinase MB Relative Index 1.3 % (0-4) Troponin I Quantitative < 0.017 ng/mL (0.000-0.055) VI-Pwt-J-Type Natriuretic Peptide 1122 pg/mL (0-124) Total Protein 6.8 g/dL (6.4-8.2) Albumin 3.4 g/dL (3.4-5.0) Albumin/Globulin Ratio 1.0 (1.0-1.7) SARS-CoV-2 Antigen (Rapid) Negative (NEGATIVE) Urine Collection Type Unknown Urine Color Yellow Urine Clarity Clear Urine pH 7.5 (<5.0-8.0) Urine Specific [place] 1.015 (1.000-1.030) Urine Protein Negative mg/dL (NEG-TRACE) Urine Glucose (UA) Negative mg/dL (NEG) Urine Ketones (Stick) Negative mg/dL (NEG) Urine Blood Negative (NEG) Urine Nitrite Negative (NEG) Urine Bilirubin Negative (NEG) Urine Urobilinogen Dipstick 1.0 mg/dL (0.2 mg/dL) Urine Leukocyte Esterase Negative (NEG) Urine RBC 0 /HPF (0-2) Urine WBC Rare /HPF (0-4) Urine Squamous Epithelial Cells Many /LPF Urine Bacteria Many /HPF (0-FEW) Images: Images PROCEDURE: CHEST AP ONLY INDICATION: Reason: Chest palpitations / Spl. Instructions: / History: COMPARISON: None. FINDINGS: Single view of chest obtained. Cardiac silhouette upper limits of normal in size. Mild interstitial opacities to the lungs. IMPRESSION: * Mild interstitial opacities to the lungs which could be secondary to mild edema or interstitial infiltrate. A chronic component is not excluded given lack of prior exam. Assessment/Plan Assessment/Plan Symptomatic tachyarrhythmia, multiple PVCs Elevated BNP concerning for acute volume overload MYNOR due to vasomotor nephropathy Hypercarbia suggestive of OHS/ELIZABETH Mild polycythemia Morbid obesity History of hypertension Admit to hospital service for further management Continue telemetry monitoring Metoprolol as needed to maintain heart rate less than 110 Counseled on weight loss Consider outpatient polysomnography Cardiology consult Pending TSH Correct all electrolytes Lovenox for DVT prophylaxis Protonix GI prophylaxis ADA diet CODE STATUS full Discussed with RN and SW Disposition inpatient management as above DPOA: Justifications for Admission Other Justification ABDOUL GARCIA MD Apr 17, 2021 15:44
[2021-04-17] MEDS ORDERED: PROCHLORPERAZINE 10 MG/2 ML VIAL. IV PRN (15:45)
[2021-04-17] MEDS ORDERED: DOCUSATE SODIUM 100 MG CAPSULE. PO PRN (15:45)
[2021-04-17] MEDS ORDERED: SENNOSIDES 8.6 MG TABLET PO PRN (15:45)
[2021-04-17] MEDS ORDERED: ACETAMINOPHEN 325 MG TABLET. PO PRN (15:45)
[2021-04-17] MEDS ORDERED: DEXTROSE 50% 25 GM / 50ML DISP.SYRIN. IV PRN (15:45)
[2021-04-17] MEDS ORDERED: ONDANSETRON PF 4 MG/2 ML VIAL. IVP PRN (15:45)
[2021-04-17] MEDS: METOPROLOL SUCC 24HR ER 50 MG TAB.ER.24H. PO SCH (16:55)
[2021-04-17] MEDS: ENOXAPARIN 40 MG/0.4 ML SYRINGE. SQ SCH (16:55)
[2021-04-17] MEDS: IV NORMAL SALINE 1000ML BAG 1,000 ML IV SCH ×2 (16:58→22:41)
--- NOTE | 2021-04-17 19:15 | NUR ---
ASSUME CARE, VSS, PT ADMISSION AND HISTORY COMPLETED AND CHARTED. PT DENIES PAIN AT THIS. PT HEART RHYTHM REMAINS IN NORMAL SINUS RHYTHM. CALL LIGHT IN REACH . WILL CONT TO MONITOR PT STATUS AND SAFETY. PMRN
[2021-04-17] MEDS ORDERED: DICL20GE TP (20:25)
[2021-04-17] MEDS ORDERED: ALPR0.25 PO (20:25)
[2021-04-17] MEDS ORDERED: IBUP200T58 PO (20:25)
[2021-04-17] MEDS ORDERED: FAMO-63 PO (20:25)
[2021-04-17] MEDS ORDERED: METO-239 PO (20:25)
[2021-04-17] MEDS ORDERED: LEXAPRO20 MG PO (20:25)
--- NOTE | 2021-04-17 22:12 | NUR ---
REPORT CALLED TO ESDRAS URRUTIA, PT TRANSFERRED TO ROOM 654. PMRN
[2021-04-18 02:44] VITALS: BP 137/70
[2021-04-18 06:26] LABS: BASO % 0 % (0-3); EOS % 0 % (0-3); HEMATOCRIT 41.4 % (36.0-47.0); HEMOGLOBIN 14.1 g/dL (12.0-15.5); LYMPH # 1.4 x10^3/uL (1.0-4.8); LYMPH % 21 % (24-48); MEAN CORPUSCULAR HEMOGLOBIN 32 pg (25-35); MEAN CORPUSCULAR HGB CONC 34 g/dL (31-37); MEAN CORPUSCULAR VOLUME 94 fL (79-100); MONO # 0.5 x10^3/uL (0.0-1.1); MONO % 7 % (0-9); NEUT % 72 % (31-73); PLATELET COUNT 156 x10^3/uL (140-400); RED BLOOD COUNT 4.39 x10^6/uL (3.50-5.40); RED CELL DISTRIBUTION WIDTH 13.4 % (11.5-14.5)
[2021-04-18 06:33] LABS: CALCIUM 8.7 mg/dL (8.5-10.1); MAGNESIUM 1.9 mg/dL (1.8-2.4); PHOSPHORUS 2.8 mg/dL (2.6-4.7); POTASSIUM 4.5 mmol/L (3.5-5.1)
[2021-04-18 06:44] LABS: CHOLESTEROL/HDL RATIO 2.8
[2021-04-18 07:00] VITALS: BP 167/96
[2021-04-18] MEDS ORDERED: ASPIRIN ENTERIC COATED 325 MG TABLET.DR. PO SCH (08:00)
[2021-04-18] MEDS: ENOXAPARIN 40 MG/0.4 ML SYRINGE. SQ SCH (09:37)
[2021-04-18] MEDS: METOPROLOL SUCC 24HR ER 50 MG TAB.ER.24H. PO SCH (09:37)
[2021-04-18 11:00] VITALS: BP 134/69
--- NOTE | 2021-04-18 11:00 | PDOC ---
CARDIO Progress Notes Date and Time Date of Service 04/18/21 Time of Evaluation 1050 Subjective Subjective: No Chest Pain, No shortness of breath, No Palpitations Vitals Vitals Vital Signs Date Time Temp Pulse Resp B/P (MAP) Pulse Ox O2 Delivery O2 Flow Rate FiO2 04/18/21 09:37 82 167/96 04/18/21 08:00 Room Air 04/18/21 07:00 98.0 18 96 98.0 Weight Weight [ ] Input and Output Intake and Output l Intake and Output 04/18/21 07:00 Intake Total 200 ml Output Total 600 ml Balance -400 ml Intake Oral 200 ml Output Urine Total 600 ml # Voids 3 Laboratory Labs Laboratory Tests Test 04/17/21 11:35 04/17/21 13:10 04/18/21 06:00 SARS-CoV-2 RNA (ESTEFANY) Negative (Negative) SARS-CoV-2 Antigen (Rapid) Negative (NEGATIVE) Urine Collection Type Unknown Urine Color Yellow Urine Clarity Clear Urine pH 7.5 (<5.0-8.0) Urine Specific [place] 1.015 (1.000-1.030) Urine Protein Negative mg/dL (NEG-TRACE) Urine Glucose (UA) Negative mg/dL (NEG) Urine Ketones (Stick) Negative mg/dL (NEG) Urine Blood Negative (NEG) Urine Nitrite Negative (NEG) Urine Bilirubin Negative (NEG) Urine Urobilinogen Dipstick 1.0 mg/dL (0.2 mg/dL) Urine Leukocyte Esterase Negative (NEG) Urine RBC 0 /HPF (0-2) Urine WBC Rare /HPF (0-4) Urine Squamous Epithelial Cells Many /LPF Urine Bacteria Many /HPF (0-FEW) White Blood Count 7.0 x10^3/uL (4.0-11.0) Red Blood Count 4.39 x10^6/uL (3.50-5.40) Hemoglobin 14.1 g/dL (12.0-15.5) Hematocrit 41.4 % (36.0-47.0) Mean Corpuscular Volume 94 fL (79-100) Mean Corpuscular Hemoglobin 32 pg (25-35) Mean Corpuscular Hemoglobin Concent 34 g/dL (31-37) Red Cell Distribution Width 13.4 % (11.5-14.5) Platelet Count 156 x10^3/uL (140-400) Neutrophils (%) (Auto) 72 % (31-73) Lymphocytes (%) (Auto) 21 % (24-48) Monocytes (%) (Auto) 7 % (0-9) Eosinophils (%) (Auto) 0 % (0-3) Basophils (%) (Auto) 0 % (0-3) Neutrophils # (Auto) 5.0 x10^3/uL (1.8-7.7) Lymphocytes # (Auto) 1.4 x10^3/uL (1.0-4.8) Monocytes # (Auto) 0.5 x10^3/uL (0.0-1.1) Eosinophils # (Auto) 0.0 x10^3/uL (0.0-0.7) Basophils # (Auto) 0.0 x10^3/uL (0.0-0.2) Sodium Level 141 mmol/L (136-145) Potassium Level 4.5 mmol/L (3.5-5.1) Chloride Level 107 mmol/L (98-107) Carbon Dioxide Level 25 mmol/L (21-32) Anion Gap 9 (6-14) Blood Urea Nitrogen 13 mg/dL (7-20) Creatinine 1.0 mg/dL (0.6-1.0) Estimated GFR (Cockcroft-Gault) 58.0 Glucose Level 108 mg/dL (70-99) Calcium Level 8.7 mg/dL (8.5-10.1) Phosphorus Level 2.8 mg/dL (2.6-4.7) Magnesium Level 1.9 mg/dL (1.8-2.4) Triglycerides Level 99 mg/dL (0-150) Cholesterol Level 184 mg/dL (0-200) LDL Cholesterol, Calculated 99 mg/dL (0-100) VLDL Cholesterol, Calculated 20 mg/dL (0-40) Non-HDL Cholesterol Calculated 119 mg/dL (0-129) HDL Cholesterol 65 mg/dL (40-60) Cholesterol/HDL Ratio 2.8 Physical Exam HEENT: Neck Supple W Full Motion Chest: Symmetric LUNGS: Clear to Auscultation Heart: RRR Abdomen: Soft N/T Extremities: No Edema Neurology: alert, follow commands Assessment Assessment 1. PAFIB with RVR; converted back to SR and is maintaining. Event monitor with brief bursts of AFIB, otherwise SR. AFIB burden < 1%, although monitor only worn for 11 days. TSH WNL 2. Hyperlipidemia 3. GERD Recommendations Continue metoprolol for rate control Would recommend addition of antiarrhythmic therapy if further paroxysms of AFIB noted Echo pending Start Eliquis for stroke prophylaxis. Outpatient sleep study. Follow up in our office with Dr. Gaming as scheduled. Justicifation of Admission Dx: Justifications for Admission: Justification of Admission Dx: Yes Comments: AFIB with RVR SANAM QUACH APRN Apr 18, 2021 11:00
--- NOTE | 2021-04-18 11:10 | NUR ---
SS following for discharge planning. SS reviewed pt chart and discussed with pt RN. Pt is from home with spouse and is currently on room air. Cardiology following. COVID19 negative. Discharge plan is to home when medically ready for discharge. SS will continue to follow for discharge planning.
--- NOTE | 2021-04-18 11:24 | DISCH ---
DISCHARGE INSTRUCTIONS Condition on Discharge Condition on Discharge: Stable Activity After Discharge Activity Instructions for Disc: Resume previous activity Exercise Instruction after Dis: Walk 15 min, 3 x per day Driving Instructions after Dis: Do not drive today Diet after Discharge Diet after Discharge: Cardiac Follow-Up Follow up with: PCP within 2 weeks of discharge Follow Up With: Cardiology as needed or as scheduled ABDOUL GARCIA MD Apr 18, 2021 11:24
[2021-04-18] MEDS: IV NORMAL SALINE 1000ML BAG 1,000 ML IV SCH (11:45)
[2021-04-18] MEDS ORDERED: PERFLUTREN PROTEIN-A MICROSPHR 0.22 MG/ML 3 ML VIAL. IV ONE (12:19)
[2021-04-18 15:00] VITALS: BP 131/66
[2021-04-18] MEDS ORDERED: APIX5TAB PO (15:20)
--- NOTE | 2021-04-18 15:53 | CARD ---
MR#: [id number] Date of Study: 04/18/2021 Ordering Physician: SANAM QUACH, Referring Physician: SANAM QUACH, Tech: Natacha Hernández [facility] APPROVED REPORT EXAM: Two-dimensional and M-mode echocardiogram with Doppler and color Doppler. Other Information Quality : AverageHR: 66bpm Rhythm : NSR INDICATION Atrial Fibrillation RISK FACTORS Hypertension Obesity 2D DIMENSIONS RVDd3.0 (2.9-3.5cm)Left Atrium(2D)4.1 (1.6-4.0cm) IVSd1.9 (0.7-1.1cm)Aortic Root(2D)3.4 (2.0-3.7cm) LVDd4.6 (3.9-5.9cm)LVOT Diameter2.1 (1.8-2.4cm) PWd1.5 (0.7-1.1cm)LVDs2.5 (2.5-4.0cm) FS (%) 45.2 %SV75.1 ml Aortic Valve AoV Peak Jimmy.139.5cm/sAoV VTI34.0cm AO Peak GR.7.8mmHgLVOT Peak Jimmy.105.8cm/s AO Mean GR.5mmHgAVA (VMAX)2.68cm2 Mitral Valve MV E Kzdiwqmo47.4cm/sMV DECEL [id number] MV A Hceomzmv13.9cm/sE/A Ratio1.8 Pulmonary Valve PV Peak Amxpvwqj129.6cm/s Pulmonary Vein S1 Utuscxqj20.7cm/sD2 Tochzzrm74.6cm/s PVa [id number] LEFT VENTRICLE The left ventricle is normal size. There is mild concentric left ventricular hypertrophy. The left ve ntricular systolic function is normal and the ejection fraction is within normal range. Estimated ej ection fraction 60-65%. There is normal LV segmental wall motion. Transmitral Doppler flow pattern is Grade I-abnormal relaxation pattern. RIGHT VENTRICLE The right ventricle is normal size. There is normal right ventricular wall thickness. The right ventr icular systolic function is normal. ATRIA The left atrium size is normal. The right atrium size is normal. The interatrial septum is intact wit h no evidence for an atrial septal defect or patent foramen ovale as noted on 2-D or Doppler imaging. AORTIC VALVE The aortic valve is normal in structure and function. Doppler and Color Flow revealed no significant aortic regurgitation. There is no significant aortic valvular stenosis. MITRAL VALVE The mitral valve is normal in structure and function. There is no evidence of mitral valve prolapse. There is no mitral valve stenosis. Doppler and Color Flow revealed no mitral valve regurgitation note d. TRICUSPID VALVE The tricuspid valve is normal in structure and function. Doppler and Color Flow revealed no tricuspid valve regurgitation noted. There is no tricuspid valve stenosis. PULMONIC VALVE The pulmonary valve is normal in structure and function. Doppler and Color Flow revealed no pulmonic valvular regurgitation. GREAT VESSELS The aortic root is normal in size. The ascending aorta is normal in size. The IVC is normal in size a nd collapses >50% with inspiration. PERICARDIAL EFFUSION There is no evidence of significant pericardial effusion. Critical Notification Critical Value: No <Conclusion> The left ventricle is normal size. The left ventricular systolic function is normal and the ejection fraction is within normal range. Estimated ejection fraction 60-65%. There is mild concentric left ventricular hypertrophy. Doppler and Color Flow revealed no significant aortic regurgitation. There is no significant aortic valvular stenosis. Doppler and Color Flow revealed no mitral valve regurgitation noted. Doppler and Color Flow revealed no tricuspid valve regurgitation noted. Signed by : Kael Cross MD Electronically Approved : 04/18/2021 15:53:33
--- NOTE | 2021-04-18 16:48 | NUR ---
Discharge Note: JOSE DONAHUE [address] Discharge instructions and discharge home medications reviewed with Patient and a copy given. All questions have been answered and understanding verbalized. The following instructions and handouts were given: chest pain, a-fib, eliquis IV discontinued, no complications. Patient discharged to home with self care. All belongings taken home with patient.
[2021-04-18] MEDS ORDERED: APIXABAN 5 MG TABLET. PO SCH (21:00)
--- NOTE | 2021-04-21 21:32 | PDOC3 ---
[facility]-Discharge Summary Date of Admission: Date of Admission: Apr 17, 2021 Date of Discharge: Date of Discharge: Apr 18, 2021 Discharge Diagnosis: Discharge Diagnosis: Symptomatic tachyarrhythmia, multiple PVCs Elevated BNP concerning for acute volume overload MYNOR due to vasomotor nephropathy Hypercarbia suggestive of OHS/ELIZABETH Mild polycythemia Morbid obesity History of hypertension Consults: Consults: Cardiology Recommendations Continue metoprolol for rate control Would recommend addition of antiarrhythmic therapy if further paroxysms of AFIB noted Echo pending Start Eliquis for stroke prophylaxis. Outpatient sleep study. Follow up in our office with Dr. Guerrero as scheduled. Justicifation of Admission Dx: Justifications for Admission: Justification of Admission Dx: Yes Comments: AFIB with RVR SANAM QUACH APRN Apr 18, 2021 11:00 Signed By: SANAM QUACH APRN <<Signature on File>> Signed Date/Time:04/18/211516 MARK GUERRERO MD <<Signature on File>> 04/18/217 cc: MARK GUERRERO MD; SANAM QUACH APRN; SONIA LYMAN MD; ABDOUL GARCIA MD ~ REVIEWED AND ELECTRONICALLY SIGNED BY: MARK GUERRERO MD Addendum: MARK GUERRERO MD on 04/18/21 @ 16:24 Patient seen and evaluated. I agree with our nurse practitioners assessment and plan. Paroxysmal atrial fibrillation with rapid ventricular response. Has converted back to sinus rhythm. We will continue on metoprolol. Echocardiogram shows normal LV the systolic function and no significant valvular abnormalities. We will start Eliquis. We will follow-up in the office with a probable EP consult. Possible sleep apnea. Outpatient sleep study. Hyperlipidemia. Continue present medications. Gastroesophageal reflux disease. Continue present medications. Hospital Course: Hospital Course: 51-year-old female who is morbidly obese and has had a history of atrial fibrillation in the past who comes in the ED for feelings of palpitations and elevated heart rate. She was actually getting go to [facility] to get her Covid test in which she was waiting she felt lightheaded and about 5 to 10 minutes later her symptoms some watch alerted her that she was in atrial fibrillation. Patient has tried to wear a heart monitor in the past but had reactions to the gel which she was placed on. Therefore she was never formally diagnosed with atrial fibrillation and was not able to follow-up with. Patient did not take her normally dose metoprolol. On arrival she did have intermittent atrial fibrillation and she was in normal sinus rhythm with PVCs. During my time of interview her's phototypesetting equipment monitor did show that she was in normal sinus rhythm. Denies fevers, chest pain, abdominal pain, diarrhea, shortness of breath or s yncope. By day of discharge, pt was clinically stable and ready for discharge. Rest of hospital course was uneventful Disposition: Disposition/Orders: D/C to Home Activity: Activity: Resume previous activity Diet: Diet: Cardiac Medications: Home Meds Active Scripts Apixaban (ELIQUIS) 5 Mg Tablet, 5 MG PO BID for AFIB for 30 Days, #60 TAB 2 Refills Prov:SANAM QUACH KASHMIR 04/18/21 Reported Medications Diclofenac Sodium (Voltaren Arthritis Pain) 20 Gm Gel..gram., 20 GM TP PRN BID PRN for PAIN, EACH 04/17/21 Famotidine (PEPCID) 20 Mg Tablet, 20 MG PO PRN DAILY PRN for HEARTBURN / GAS, TAB 04/17/21 Ibuprofen (ADVIL) 200 Mg Tablet, 200 MG PO PRN DAILY PRN for PAIN, TAB 04/17/21 Alprazolam (XANAX) 0.25 Mg Tablet, 0.25 MG PO PRN Q6HRS PRN for ANXIETY / AGITATION, TAB 0 Refills 04/17/21 Escitalopram Oxalate (LEXAPRO) 20 Mg Tablet, 20 MG PO DAILY for ANTI-DEPRESSANT, TAB 0 Refills 04/17/21 Metoprolol Succinate (METOPROLOL SUCCINATE ( XL )) 25 Mg Tab.er.24h, 50 MG PO DAILY for FOR HYPERTENSION, #30 TAB 0 Refills 04/17/21 Scheduled Apixaban (Eliquis), 5 MG PO BID Escitalopram Oxalate (Lexapro), 20 MG PO DAILY, (Reported) Metoprolol Succinate (Metoprolol Succinate ( Xl )), 50 MG PO DAILY, (Reported) Scheduled PRN Alprazolam (Xanax), 0.25 MG PO PRN Q6HRS PRN for ANXIETY / AGITATION, (Reported) Diclofenac Sodium (Voltaren Arthritis Pain), 20 GM TP PRN BID PRN for PAIN, (Reported) Famotidine (Pepcid), 20 MG PO PRN DAILY PRN for HEARTBURN / GAS, (Reported) Ibuprofen (Advil), 200 MG PO PRN DAILY PRN for PAIN, (Reported) Total Time: Total Time: Total time spent was 31 minutes in preparing scripts, discharge planning with SW and RN, and preparing this discharge summary. Justicifation of Admission Dx: Justifications for Admission: Justification of Admission Dx: Yes ABDOUL GARCIA MD Apr 21, 2021 21:31
== END 2021-04-18 16:34 | disposition home or self-care (01) ==
LOC: ER 09:56 → ED HOLD 14:11 → INTOOBSV 14:11 → 6 SOUTH 14:11
PROVIDERS: ADMIT Internal Medicine; ATTEND Internal Medicine
DX: I49.3 Ventricular premature depolarization (principal); Z20.822 Contact with and (suspected) exposure to COVID-19; I10 Essential (primary) hypertension; E78.5 Hyperlipidemia, unspecified; K21.9 Gastro-esophageal reflux disease without esophagitis; R00.2 Palpitations; R00.0 Tachycardia, unspecified; E66.01 Morbid (severe) obesity due to excess calories; N17.0 Acute kidney failure with tubular necrosis; D75.1 Secondary polycythemia; R79.89 Other specified abnormal findings of blood chemistry; I48.91 Unspecified atrial fibrillation; Z98.51 Tubal ligation status; Z82.49 Family history of ischemic heart disease and other diseases of the circulatory system
CPT/HCPCS: 36415; 71045; 80048; 80053; 80061; 81001; 82553; 83735; 83880; 84100; 84443; 84484; 85025; 87086; 87426; 93005; 93306; 96361; 96372; 96374; 96375; 99285; G0378; J1160; J1650; J3490; J7030; U0003; U0005; G0379